=== PATIENT | female | born 1950 | race Caucasian/White ===

== ENCOUNTER 2017-08-31 16:08 | Observation (INO) | payer SELFPAY ==
--- NOTE | 2017-08-31 16:50 | ED PDOC ---
HPI: SOB/CHF/COPD Time Seen by Provider: 08/31/17 16:24 Chief Complaint (Nursing): Shortness Of Breath History Per: Patient Additional Complaint(s): Pt. states for the past 3-4 days she's had SOB. Reports that she does get SOB normally throughout the day which is relieved with her advair. States that SOB is worse when she is sleeping at night and when she goes up the stairs. Denies cough, hemoptysis, chest pain, palpitations, hx of DVT or PE, extremity swelling , fever. Of note, pt. was seen in [facility] earlier today and was told to come to ED for further evaluation. Past Medical History Reviewed: Historical Data, Nursing Documentation, Vital Signs Vital Signs: Last Vital Signs Temp 97.8 F 08/31/17 16:11 Pulse 51 L 08/31/17 16:11 Resp 16 08/31/17 16:11 BP 149/84 08/31/17 19:19 Pulse Ox 97 08/31/17 16:52 - Medical History PMH: Diabetes, HTN, Hypercholesterolemia - Surgical History Surgical History: No Surg Hx - Family History Family History: States: No Known Family Hx - Home Medications Home Medications: Ambulatory Orders Medication Instructions Recorded Aspirin [Aspirin] 325 mg PO DAILY 08/31/17 Glipizide [Glipizide Xl] 10 mg PO DIN 08/31/17 Insulin Glargine, Recombina 22 unit SC HS 08/31/17 [Lantus] Neomycin/Polymyxin/Dexamethaso 1 drop EACHEYE Q12 08/31/17 [Maxitrol Opht Susp] Omeprazole [Omeprazole] 20 mg PO DAILY 08/31/17 Rosuvastatin Calcium [Crestor] 10 mg PO HS 08/31/17 Salmeterol Xinafoate/Fluticaso 2 puff IH Q12 08/31/17 [Advair Hfa 230-21] Sitagliptin Phos/Metformin HCl 1 tab PO BID 08/31/17 [Janumet 50-500 mg Tablet] amLODIPine [Norvasc] 10 mg PO HS 08/31/17 - Allergies Allergies/Adverse Reactions: Allergies Allergy/AdvReac Type Severity Reaction Status Date / Time No Known Allergies Allergy Verified 08/31/17 16:11 Wells Criteria for PE - Wells Criteria for Pulmonary Embolism Clinical Signs and Symptoms of DVT: No P.E is #1 Diagnosis, or Equally Likely: No Heart Rate >100: No Immobilization at least 3 days;Surgery previous 4 weeks: No Previous, objectively diagnosed PE or DVT: No Hemoptysis: No Malignancy w/treatment within 6 months, or palliative: No Total Score: 0 Review of Systems ROS Statement: Except As Marked, All Systems Reviewed And Found Negative Cardiovascular: Positive for: Paroxysmal Noc. Dyspnea Respiratory: Positive for: Shortness of Breath Physical Exam - Reviewed Nursing Documentation Reviewed: Yes Vital Signs Reviewed: Yes - Physical Exam Appears: Positive for: Well, Non-toxic, No Acute Distress (speaking in full sentences) Head Exam: Positive for: ATRAUMATIC, NORMAL INSPECTION, NORMOCEPHALIC Skin: Positive for: Normal Color, Warm. Negative for: Rash Eye Exam: Positive for: EOMI, Normal appearance, PERRL ENT: Positive for: Normal ENT Inspection Neck: Positive for: Normal, Painless ROM Cardiovascular/Chest: Positive for: Regular Rate, Rhythm Respiratory: Positive for: CNT, Normal Breath Sounds Gastrointestinal/Abdominal: Positive for: Normal Exam, Soft. Negative for: Tenderness Back: Positive for: Normal Inspection Extremity: Positive for: Normal ROM. Negative for: Pedal Edema, Calf Tenderness (b/l), Swelling (b/l lower legs) Neurologic/Psych: Positive for: Alert, Oriented. Negative for: Aphasia, Facial Droop - Laboratory Results Result Diagrams: 08/31/17 17:38 08/31/17 17:38 - ECG ECG: Positive for: Interpreted By Me ECG Rhythm: Positive for: Sinus Rhythm. Negative for: ST/T Changes Rate: 61 O2 Sat by Pulse Oximetry: 97 - Radiology X-Ray: Interpreted by Me (CXR) X-Ray Interpretation: No Acute Disease - Progress ED Course And Treament: Labs ordered. Pt. placed on director of cardiac cath lab. compliance monitor: Sinus bradycardia at 52 bpm without ectopy Family and pt. informed of results. Reports that she still feels SOB. Due to pt. 's PMHx and age she will be placed under observation. Denies weakness, dizziness , lightheadedness. Case d/w Dr. Salazar who recommends 23 hr observation for symptomatic bradycardia. Case d/w Dr. Coronado and arrangements made for 23 hour observation. Disposition - Clinical Impression Clinical Impression: Symptomatic bradycardia - Patient ED Disposition Is Patient to be Admitted: No - Disposition Disposition Time: 19:22 Condition: STABLE
[2017-08-31 17:49] LABS: BASO # 0.1 K/uL (0.0-0.2); BASO % 0.6 % (0.0-2.0); EOS # 0.3 K/uL (0.0-0.7); EOS % 3.8 % (0.0-4.0); HEMOGLOBIN 13.9 g/dL (12.0-16.0); LYMPH # 3.3 K/uL (1.0-4.3); LYMPH % 36.9 % (20.0-40.0); MEAN CELL VOLUME 80.8 fl (81.0-99.0); MEAN CORPUSCULAR HEMOGLOBIN 27.4 pg (27.0-31.0); MEAN CORPUSCULAR HGB CONC 33.9 g/dL (33.0-37.0); MEAN PLATELET VOLUME 9.9 fl (7.2-11.7); MONO # 0.6 K/uL (0.0-0.8); MONO % 6.5 % (0.0-10.0); NEUT # 4.6 K/uL (1.8-7.0); NEUT % 52.2 % (50.0-75.0); NRBC % 0.1 % (0.0-0.0); RBC 5.07 Mil/uL (3.80-5.20); RED CELL DISTRIBUTION WIDTH 12.8 % (11.5-14.5); WHITE BLOOD COUNT 8.9 K/uL (4.8-10.8)
--- NOTE | 2017-08-31 17:55 | RAD ---
HISTORY: Shortness of breath COMPARISON: No prior. FINDINGS: LUNGS: The lungs are well inflated and clear. PLEURA: No significant pleural effusion identified, no pneumothorax apparent. CARDIOVASCULAR: The heart is normal in size. Atherosclerotic aortic arch calcifications are present. OSSEOUS STRUCTURES: No significant abnormalities. VISUALIZED UPPER ABDOMEN: Normal. OTHER FINDINGS: None. IMPRESSION: No active pulmonary disease.
[2017-08-31 18:08] LABS: ALB/GLOB RATIO 1.1 (1.0-2.1); ALBUMIN 4.4 g/dL (3.5-5.0); ALT/SGPT 45 U/L (9-52); AST/SGOT 34 U/L (14-36); BLOOD UREA NITROGEN 16 mg/dl (7-17); CALCIUM 9.9 mg/dL (8.4-10.2); GFR AFRICAN-AMERICAN > 60; GFR NON-AFRICAN AMERICAN > 60
[2017-08-31 18:23] LABS: B-TYPE NATRIURETIC PEPTIDE 218 pg/ml (0-900)
[2017-08-31] MEDS ORDERED: Albuterol 0.083% Inhal Sol (2.5 mg/3 mL) UD INH STA (19:22)
[2017-08-31] MEDS ORDERED: Albuterol 0.083% Inhal Sol (2.5 mg/3 mL) UD ONE (20:22)
[2017-08-31] MEDS ORDERED: Patient's Own Med (Sitagliptin Phos/Metformin Hcl [Janumet 50-500 Mg Tablet] 1 TAB) PO SCH (20:30)
[2017-08-31] MEDS ORDERED: Albuterol 0.083% Inhal Sol (2.5 mg/3 mL) UD INH PRN (20:38)
[2017-08-31] MEDS ORDERED: Glucagon Recombinant 1 mg Inj IM PRN (20:39)
[2017-08-31] MEDS ORDERED: Dextrose 50% SYRINGE Inj (50 ml) IV PRN (20:39)
--- NOTE | 2017-08-31 20:41 | CP.PCM.HP ---
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 Patient reports she has had short of breath for longtime, approximately 10 years, but started getting worse on December, after she had an episode of pneumonia. She feels that her SOB appears at not specific timing. But has noticed that her exertion tolerance has decreased since the beginning of this year, and she is able to walk just 1 block before getting SOB. Prior to the last year pneumonia episode she was able to walk long distances without getting SOB. Denies chest pain,chest tightness, N/V, abdominal pain, wheezing, fevers, chills, cough, sputum production. Denies paroxysmal nocturnal dyspnea. PMD: [facility] Full code PMHx: HTN, DM type 2 on insulin, HLD, Stroke ( two episodes 10 years ago), Asthma allergies:NKDA FHx: unknown Shx: Back surgery, Cholecystectomy, Hysterectomy Never had a colonoscopy. Socialhx: never smoker, denies etoh and illicit drugs meds: as per records ER course: alert and oriented x 3 VS:afebrile, bradycardic:51, normal oxygen sat in room air PE: CV : irregular bradycardia respiratory: diffuse and bilateral rales to auscultation, no wheezing or rhonchi ext: no edema in [place] labs:CBC unremarkable, CMP: normal lytes, troponin x I wnl, TSH wnl, Pro-BNP wnl CXR: reported as no evidence of active disease tx:albuterol inh once Present on Admission - Present on Admission Any Indicators Present on Admission: No History of DVT/PE: No History of Uncontrolled Diabetes: No Urinary Catheter: No Decubitus Ulcer Present: No Review of Systems - Review of Systems All systems: reviewed and no additional remarkable complaints except (as per HPI ) Past Patient History - CARDIAC Hx Hypercholesterolemia: Yes Hx Hypertension: Yes Meds Allergies/Adverse Reactions: Allergies Allergy/AdvReac Type Severity Reaction Status Date / Time No Known Allergies Allergy Verified 08/31/17 16:11 Physical Exam - Constitutional Appears: Non-toxic, No Acute Distress - ENT Exam ENT Exam: Mucous Membranes Moist - Respiratory Exam Respiratory Exam: Rales (diffuse rales bilateral), NORMAL BREATHING PATTERN. absent: Rhonchi, Wheezes, Respiratory Distress - Cardiovascular Exam Cardiovascular Exam: Bradycardia, Irregular Rhythm, +S1, +S2 - GI/Abdominal Exam GI & Abdominal Exam: Normal Bowel Sounds, Soft. absent: Distended, Guarding, Rebound, Rigid, Tenderness - Extremities Exam Extremities exam: Positive for: normal inspection. Negative for: calf tenderness, pedal edema - Back Exam Back exam: NORMAL INSPECTION. absent: CVA tenderness (L), CVA tenderness (R) - Neurological Exam Neurological exam: Alert, Oriented x3 - Psychiatric Exam Psychiatric exam: Normal Affect, Normal Mood - Skin Skin Exam: Dry, Intact, Normal Color Results - Vital Signs Recent Vital Signs: Last Vital Signs Temp 97.8 F 08/31/17 16:11 Pulse 51 L 08/31/17 16:11 Resp 16 08/31/17 16:11 BP 149/84 08/31/17 19:19 Pulse Ox 97 08/31/17 16:52 - Labs Result Diagrams: 08/31/17 17:38 08/31/17 17:38 Labs: Laboratory Results - last 24 hr 08/31/17 08/31/17 17:38 17:38 WBC 8.9 RBC 5.07 Hgb 13.9 Hct 41.0 MCV 80.8 L MCH 27.4 MCHC 33.9 RDW 12.8 Plt Count 255 MPV 9.9 Neut % (Auto) 52.2 Lymph % (Auto) 36.9 [place] % (Auto) 6.5 Eos % (Auto) 3.8 Baso % (Auto) 0.6 Neut # (Auto) 4.6 Lymph # (Auto) 3.3 [place] # (Auto) 0.6 Eos # (Auto) 0.3 Baso # (Auto) 0.1 Sodium 143 Potassium 4.5 Chloride 102 Carbon Dioxide 22 Anion Gap 24 H BUN 16 Creatinine 0.5 L Est GFR ( Amer) > 60 Est GFR (Non-Af Amer) > 60 Random Glucose 170 H Calcium 9.9 Phosphorus 5.2 H Magnesium 1.7 Total Bilirubin 0.5 AST 34 ALT 45 Alkaline Phosphatase 84 Troponin I < 0.0120 NT-Pro-B Natriuret Pep 218 Total Protein 8.4 H Albumin 4.4 Globulin 3.9 Albumin/Globulin Ratio 1.1 TSH 3rd Generation 3.08 Assessment & Plan - Assessment and Plan (Free Text) Assessment: 67 y/o female with PMHx HTN, DM type 2 on insulin, HLD, Stroke, Asthma admitted with dyspnea on exertion and irregular sinus bradycardia Plan: Dyspnea on exertion -Telemetry -respiratory etiology vs cardiac etiology -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 -oxygen supplementation via NC started at 2 LPM and titrate as needed to maintain oxygen sat >94 % -EKG in ER showed irregular sinus bradycardia with incomplete RBBB, and no specific T wave abnormality -repeat EKG -troponin x I wnl -check serial troponin x I x 2 -Echo in AM -PFTs to r/o obstructive vs restrictive lung disease -ABG in am -pro-BNP wnl -Consider cardiology consult if needed Hypertension -c/w home amlodipine -heart healthy diet Diabetes mellitus type 2 -accucheck -c/w home regimen -hypoglycemic protocol -check HgbA1C and lipid panel -diabetic diet H/O Asthma -does not seem to be in exacerbation -PFTs to r/o obstructive vs restrictive lung disease -c/w home steroid/long acting B2 adrenerg Hyperlipidemia -c/w home atorvastatin -check lipid panel DVT prophylaxis Lovenox SC - Date & Time Date: 08/31/17 Time: 20:50
[2017-08-31] MEDS ORDERED: Insulin Detemir 100 Units/ml Inj SC SCH (22:00)
[2017-09-01] MEDS: Fluticasone-Salmeterol 250-50mcg Diskus IH SCH ×2 (00:30→12:33)
[2017-09-01 05:56] LABS: HDL CHOLESTEROL 33 MG/DL (30-70)
[2017-09-01 06:07] LABS: LDL CHOLESTEROL 81 mg/dL (0-129)
[2017-09-01] MEDS ORDERED: Pneumococcal 23-Valent Vaccine IM ONE (06:30)
[2017-09-01] MEDS ORDERED: Sodium Chloride 0.9% 1,000 ML IV SCH (07:30)
[2017-09-01 09:00] LABS: SQUAMOUS EPITHIAL < 1 /hpf (0-5); URINE BILIRUBIN NEGATIVE (NEGATIVE); URINE BLOOD NEGATIVE (NEGATIVE); URINE CLARITY CLEAR (Clear); URINE COLOR YELLOW (YELLOW); URINE GLUCOSE (UA) NEG (Normal); URINE LEUKOCYTE ESTERASE NEG Leu/uL (Negative); URINE PROTEIN NEGATIVE (NEGATIVE); URINE UROBILINOGEN 0.2-1.0 mg/dL (0.2-1.0)
[2017-09-01] MEDS ORDERED: POLYETHYLENE GLYCOL 3350 17 GM/Dose PACKET PO SCH (09:00)
[2017-09-01] MEDS ORDERED: Enoxaparin 40 mg Syringe SC SCH (09:00)
[2017-09-01] MEDS ORDERED: Pantoprazole 40 mg EC Tab PO SCH (09:00)
--- NOTE | 2017-09-01 10:27 | CARD ---
APPROVED REPORT EXAM: Two-dimensional and M-mode echocardiogram with Doppler and color Doppler. Other Information Quality : GoodRhythm : Bradycardia INDICATION Abnormal EKG/Arrhythmia Dyspnea 2D DIMENSIONS IVSd1.22 (0.7-1.1cm)LVDd3.81 (3.9-5.9cm) LVOT Diameter1.75 (1.8-2.4cm)PWd0.96 (0.7-1.1cm) IVSs1.33 (0.8-1.2cm)LVDs2.39 (2.5-4.0cm) FS (%) 37.2 %PWs1.54 (0.8-1.2cm) M-Mode DIMENSIONS Left Atrium (MM)3.66 (2.5-4.0cm)IVSd0.98 (0.7-1.1cm) Aortic Root2.51 (2.2-3.7cm)LVDd4.47 (4.0-5.6cm) Aortic Cusp Exc.1.31 (1.5-2.0cm)PWd1.08 (0.7-1.1cm) IVSs1.91 cmFS (%) 58 % LVDs1.89 (2.0-3.8cm)PWs1.63 cm Mitral Valve MV E Ydnawmfm97.6cm/sMV DECEL [id number] A Mgchomjs58.6cm/s MV VFW81fxV/A ratio1.2MVA (PHT)3.70cm2 TDI Lateral E' Peak V7.66cm/sMedial E' Peak V9.13cm/sE/Lateral E'12.5 E/Medial E'10.5 Tricuspid Valve TR Peak Vlyvfmao550dr/sRAP [id number] Peak Gr.28mmHg VNUV06rhCi LEFT VENTRICLE The left ventricle is normal size. There is normal left ventricular wall thickness. Left ventricle systolic function is normal. The Ejection Fraction is 65-70%. There is normal LV segmental wall motion. Transmitral Doppler flow pattern is Grade I-abnormal relaxation pattern. RIGHT VENTRICLE The right ventricle is normal size. There is normal right ventricular wall thickness. The right ventricular systolic function is normal. ATRIA The left atrium size is normal. The right atrium size is normal. AORTIC VALVE The aortic valve is normal in structure. No aortic regurgitation is present. There is no aortic valvular stenosis. MITRAL VALVE The mitral valve is normal in structure. There is no evidence of mitral valve prolapse. There is no mitral valve stenosis. Mitral regurgitation is mild. TRICUSPID VALVE The tricuspid valve is normal in structure. There is mild tricuspid regurgitation. Right ventricular systolic pressure is estimated at 39 mmHg. There is mild pulmonary hypertension. PULMONIC VALVE The pulmonary valve is normal in structure. There is no pulmonic valvular regurgitation. GREAT VESSELS The aortic root is normal in size. The IVC is normal in size and collapses >50% with inspiration. PERICARDIAL EFFUSION The pericardium appears normal. <Conclusion> The left ventricle is normal size. There is normal left ventricular wall thickness. There is normal LV segmental wall motion. Left ventricle systolic function is normal. The Ejection Fraction is 65-70%. Transmitral Doppler flow pattern is Grade I-abnormal relaxation pattern. There is mild tricuspid regurgitation. There is mild pulmonary hypertension.
--- NOTE | 2017-09-01 10:40 | CARD ---
APPROVED REPORT EKG Measurement Heart [id number] <Conclusion> Sinus rhythm with premature atrial complexes in a pattern of bigeminy Incomplete right bundle branch block Nonspecific T wave abnormality Abnormal ECG
--- NOTE | 2017-09-01 10:57 | CP.PCM.PN ---
Subjective - Date & Time of Evaluation Date of Evaluation: 09/01/17 Time of Evaluation: 09:15 - Subjective Subjective: Pt seen and examined at bedside. hospital plan administrator for english: #[id number]. Pt was seated eating breakfast. Denies significant overnight events. Denies CP/SOB/N/ V. Reports weakness since stroke 10 years ago and from chronic bilateral knee pain. Objective - Vital Signs/Intake and Output Vital Signs (last 24 hours): Temp Pulse Resp BP Pulse Ox 98.2 F 50 L 20 129/75 92 L 09/01/17 07:53 09/01/17 07:53 09/01/17 07:53 09/01/17 07:53 09/01/17 07:53 - Medications Medications: Current Medications Albuterol Sulfate (Albuterol 0.083% Inhal Irais (2.5 Mg/3 Ml) Ud) 2.5 mg INH RQ6 PRN PRN Reason: Shortness of Breath Amlodipine Besylate (Norvasc) 10 mg PO HS [facility] Last Admin: 08/31/17 22:38 Dose: 10 mg Aspirin (Aspirin Chewable) 81 mg PO DAILY [facility] Last Admin: 09/01/17 10:04 Dose: 81 mg Atorvastatin Calcium (Lipitor) 20 mg PO HS [facility] Last Admin: 08/31/17 22:39 Dose: 20 mg Dextrose (Dextrose 50% Inj) 0 ml IV STAT PRN; Protocol PRN Reason: Hypoglycemia Protocol Dextrose (Glutose 15) 0 gm PO ONCE PRN; Protocol PRN Reason: Hypoglycemia Protocol Enoxaparin Sodium (Lovenox) 40 mg SC DAILY [facility] PRN Reason: Protocol Last Admin: 09/01/17 10:05 Dose: 40 mg Glipizide (Glucotrol Xl) 10 mg PO DIN [facility] Glucagon (Glucagen Diagnostic Kit) 0 mg IM STAT PRN; Protocol PRN Reason: Hypoglycemia Protocol Sodium Chloride (Sodium Chloride 0.9%) 1,000 mls @ 100 mls/hr IV .Q10H [facility] Stop: 09/01/17 17:29 Last Admin: 09/01/17 10:06 Dose: 100 mls/hr Insulin Detemir (Levemir) 22 units SC HS [facility] Last Admin: 08/31/17 22:39 Dose: 22 units Metformin HCl (Glucophage) 500 mg PO BID [facility] Last Admin: 04/12/18 10:04 Dose: 500 mg Pantoprazole Sodium (Protonix Ec Tab) 40 mg PO DAILY [facility] Last Admin: 09/01/17 10:05 Dose: 40 mg Polyethylene Glycol (Miralax) 17 gm PO DAILY [facility] Fluticasone/Salmeterol (Advair Diskus 250/50) 1 puff IH Q12 [facility] Last Admin: 09/01/17 00:30 Dose: Not Given Sitagliptin Phosphate (Januvia) 50 mg PO BID [facility] Last Admin: 09/01/17 10:05 Dose: 50 mg - Labs Labs: 08/31/17 17:38 08/31/17 17:38 - Constitutional Appears: Well, No Acute Distress - Eye Exam Eye Exam: EOMI - Respiratory Exam Respiratory Exam: Clear to Ausculation Bilateral, NORMAL BREATHING PATTERN. absent: Wheezes - Cardiovascular Exam Cardiovascular Exam: +S1, +S2 - GI/Abdominal Exam GI & Abdominal Exam: Soft, Normal Bowel Sounds. 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 Goyal; recommendations appreciated. Hypertension -c/w home amlodipine -heart healthy diet Diabetes mellitus type 2 -accucheck -c/w home regimen -hypoglycemic protocol with low SS -check HgbA1C and lipid panel -diabetic diet H/O Asthma -does not seem to be in exacerbation -PFTs to r/o obstructive vs restrictive lung disease: pending -c/w home steroid/long acting B2 adrenerg Hyperlipidemia -c/w home atorvastatin -check lipid panel DVT prophylaxis Lovenox SC
--- NOTE | 2017-09-01 11:24 | CP.PCM.CON ---
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 Patient reports she has had short of breath for longtime, approximately 10 years , but started getting worse on December, after she had an episode of pneumonia. Denies chest pain,chest tightness, N/V, abdominal pain, wheezing, fevers, chills, cough, sputum production. Denies paroxysmal nocturnal dyspnea. Pt and family c/o sob when she walks assoc with wheezing alleviated by using an inhaler PMD: [facility] Full code PMHx: HTN, DM type 2 on insulin, HLD, Stroke ( two episodes 10 years ago), Asthma allergies:NKDA FHx: unknown Shx: Back surgery, Cholecystectomy, Hysterectomy EKG: NSR Echo: normal EF: 65-70% Troponin: neg BNP: normal Telemetry show sinus stefany that responds to movement Past Patient History - Past Medical History & Family History Past Medical History?: Yes - Past Social History Smoking Status: Never Smoked - CARDIAC Hx Hypercholesterolemia: Yes Hx Hypertension: Yes - ENDOCRINE/METABOLIC Hx Diabetes Mellitus Type 2: Yes - MUSCULOSKELETAL/RHEUMATOLOGICAL Hx Falls: No - PSYCHIATRIC Hx Substance Use: No - ANESTHESIA Hx Anesthesia: No Hx Anesthesia Reactions: No Hx Malignant Hyperthermia: No Has any member of the family had a problem w/ anesthesia?: No Meds Allergies/Adverse Reactions: Allergies Allergy/AdvReac Type Severity Reaction Status Date / Time No Known Allergies Allergy Verified 08/31/17 16:11 - Medications Medications: Current Medications Albuterol Sulfate (Albuterol 0.083% Inhal Irais (2.5 Mg/3 Ml) Ud) 2.5 mg INH RQ6 PRN PRN Reason: Shortness of Breath Amlodipine Besylate (Norvasc) 10 mg PO HS [facility] Last Admin: 08/31/17 22:38 Dose: 10 mg Aspirin (Aspirin Chewable) 81 mg PO DAILY [facility] Last Admin: 09/01/17 10:04 Dose: 81 mg Atorvastatin Calcium (Lipitor) 20 mg PO HS [facility] Last Admin: 08/31/17 22:39 Dose: 20 mg Dextrose (Dextrose 50% Inj) 0 ml IV STAT PRN; Protocol PRN Reason: Hypoglycemia Protocol Dextrose (Glutose 15) 0 gm PO ONCE PRN; Protocol PRN Reason: Hypoglycemia Protocol Enoxaparin Sodium (Lovenox) 40 mg SC DAILY [facility] PRN Reason: Protocol Last Admin: 09/01/17 10:05 Dose: 40 mg Glipizide (Glucotrol Xl) 10 mg PO DIN [facility] Glucagon (Glucagen Diagnostic Kit) 0 mg IM STAT PRN; Protocol PRN Reason: Hypoglycemia Protocol Sodium Chloride (Sodium Chloride 0.9%) 1,000 mls @ 100 mls/hr IV .Q10H [facility] Stop: 09/01/17 17:29 Last Admin: 09/01/17 10:06 Dose: 100 mls/hr Insulin Detemir (Levemir) 22 units SC HS [facility] Last Admin: 08/31/17 22:39 Dose: 22 units Metformin HCl (Glucophage) 500 mg PO BID [facility] Last Admin: 09/01/17 10:04 Dose: 500 mg Pantoprazole Sodium (Protonix Ec Tab) 40 mg PO DAILY [facility] Last Admin: 09/01/17 10:05 Dose: 40 mg Polyethylene Glycol (Miralax) 17 gm PO DAILY [facility] Fluticasone/Salmeterol (Advair Diskus 250/50) 1 puff IH Q12 [facility] Last Admin: 09/01/17 00:30 Dose: Not Given Sitagliptin Phosphate (Januvia) 50 mg PO BID [facility] Last Admin: 09/01/17 10:05 Dose: 50 mg Results - Vital Signs Recent Vital Signs: Last Vital Signs Temp 98.2 F 09/01/17 07:53 Pulse 50 L 09/01/17 07:53 Resp 20 09/01/17 07:53 BP 129/75 09/01/17 07:53 Pulse Ox 92 L 09/01/17 07:53 - Labs Result Diagrams: 08/31/17 17:38 08/31/17 17:38 Labs: Laboratory Results - last 24 hr 08/31/17 08/31/17 08/31/17 17:38 17:38 21:10 WBC 8.9 RBC 5.07 Hgb 13.9 Hct 41.0 MCV 80.8 L MCH 27.4 MCHC 33.9 RDW 12.8 Plt Count 255 MPV 9.9 Neut % (Auto) 52.2 Lymph % (Auto) 36.9 [place] % (Auto) 6.5 Eos % (Auto) 3.8 Baso % (Auto) 0.6 Neut # (Auto) 4.6 Lymph # (Auto) 3.3 [place] # (Auto) 0.6 Eos # (Auto) 0.3 Baso # (Auto) 0.1 Sodium 143 Potassium 4.5 Chloride 102 Carbon Dioxide 22 Anion Gap 24 H BUN 16 Creatinine 0.5 L Est GFR ( Amer) > 60 Est GFR (Non-Af Amer) > 60 POC Glucose (mg/dL) 103 Random Glucose 170 H Calcium 9.9 Phosphorus 5.2 H Magnesium 1.7 Total Bilirubin 0.5 AST 34 ALT 45 Alkaline Phosphatase 84 Troponin I < 0.0120 NT-Pro-B Natriuret Pep 218 Total Protein 8.4 H Albumin 4.4 Globulin 3.9 Albumin/Globulin Ratio 1.1 Triglycerides Cholesterol LDL Cholesterol Direct HDL Cholesterol TSH 3rd Generation 3.08 Urine Color Urine Clarity Urine pH Ur Specific [place] Urine Protein Urine Glucose (UA) Urine Ketones Urine Blood Urine Nitrate Urine Bilirubin Urine Urobilinogen Ur Leukocyte Esterase Urine RBC (Auto) Urine Microscopic WBC Ur Squamous Epith Cells 09/01/17 09/01/17 09/01/17 00:57 05:00 05:30 WBC RBC Hgb Hct MCV MCH MCHC RDW Plt Count MPV Neut % (Auto) Lymph % (Auto) [place] % (Auto) Eos % (Auto) Baso % (Auto) Neut # (Auto) Lymph # (Auto) Jones # (Auto) Eos # (Auto) Baso # (Auto) Sodium Potassium Chloride Carbon Dioxide Anion Gap BUN Creatinine Est GFR ( Amer) Est GFR (Non-Af Amer) POC Glucose (mg/dL) 143 H Random Glucose Calcium Phosphorus Magnesium Total Bilirubin AST ALT Alkaline Phosphatase Troponin I < 0.0120 NT-Pro-B Natriuret Pep Total Protein Albumin Globulin Albumin/Globulin Ratio Triglycerides 474 H Cholesterol 181 LDL Cholesterol Direct 81 HDL Cholesterol 33 TSH 3rd Generation Urine Color Urine Clarity Urine pH Ur Specific [place] Urine Protein Urine Glucose (UA) Urine Ketones Urine Blood Urine Nitrate Urine Bilirubin Urine Urobilinogen Ur Leukocyte Esterase Urine RBC (Auto) Urine Microscopic WBC Ur Squamous Epith Cells 09/01/17 09/01/17 09/01/17 07:48 08:15 11:11 WBC RBC Hgb Hct MCV MCH MCHC RDW Plt Count MPV Neut % (Auto) Lymph % (Auto) Jones % (Auto) Eos % (Auto) Baso % (Auto) Neut # (Auto) Lymph # (Auto) Jones # (Auto) Eos # (Auto) Baso # (Auto) Sodium Potassium Chloride Carbon Dioxide Anion Gap BUN Creatinine Est GFR ( Amer) Est GFR (Non-Af Amer) POC Glucose (mg/dL) 286 H Random Glucose Calcium Phosphorus 5.5 H Magnesium 1.7 Total Bilirubin AST ALT Alkaline Phosphatase Troponin I NT-Pro-B Natriuret Pep Total Protein Albumin Globulin Albumin/Globulin Ratio Triglycerides Cholesterol LDL Cholesterol Direct HDL Cholesterol TSH 3rd Generation Urine Color Yellow Urine Clarity Clear Urine pH 7.0 Ur Specific [place] 1.013 Urine Protein Negative Urine Glucose (UA) Neg Urine Ketones Negative Urine Blood Negative Urine Nitrate Negative Urine Bilirubin Negative Urine Urobilinogen 0.2-1.0 Ur Leukocyte Esterase Neg Urine RBC (Auto) < 1 Urine Microscopic WBC 2 Ur Squamous Epith Cells < 1 Assessment & Plan (1) Asthma Status: Acute (2) Sinus bradycardia Assessment and Plan: Pt's HR responds with movement No Tx needed Pt may be discharged Status: Acute
--- NOTE | 2017-09-01 11:56 | CP.PCM.DIS ---
Provider - Provider Date of Admission: 08/31/17 20:07 Attending physician: Gabrielle Kong MD Time Spent in preparation of Discharge (in minutes): 20 Diagnosis - Discharge Diagnosis (1) Asthma Status: Acute (2) Sinus bradycardia Status: Acute Hospital Course - Lab Results Lab Results: Most Recent Lab Values WBC 8.9 K/uL (4.8-10.8) 08/31/17 17:38 RBC 5.07 Mil/uL (3.80-5.20) 08/31/17 17:38 Hgb 13.9 g/dL (12.0-16.0) 08/31/17 17:38 Hct 41.0 % (34.0-47.0) 08/31/17 17:38 MCV 80.8 fl (81.0-99.0) L 08/31/17 17:38 MCH 27.4 pg (27.0-31.0) 08/31/17 17:38 MCHC 33.9 g/dL (33.0-37.0) 08/31/17 17:38 RDW 12.8 % (11.5-14.5) 08/31/17 17:38 Plt Count 255 K/uL (130-400) 08/31/17 17:38 MPV 9.9 fl (7.2-11.7) 08/31/17 17:38 Neut % (Auto) 52.2 % (50.0-75.0) 08/31/17 17:38 Lymph % (Auto) 36.9 % (20.0-40.0) 08/31/17 17:38 [place] % (Auto) 6.5 % (0.0-10.0) 08/31/17 17:38 Eos % (Auto) 3.8 % (0.0-4.0) 08/31/17 17:38 Baso % (Auto) 0.6 % (0.0-2.0) 08/31/17 17:38 Neut # (Auto) 4.6 K/uL (1.8-7.0) 08/31/17 17:38 Lymph # (Auto) 3.3 K/uL (1.0-4.3) 08/31/17 17:38 [place] # (Auto) 0.6 K/uL (0.0-0.8) 08/31/17 17:38 Eos # (Auto) 0.3 K/uL (0.0-0.7) 08/31/17 17:38 Baso # (Auto) 0.1 K/uL (0.0-0.2) 08/31/17 17:38 Sodium 143 mmol/l (132-148) 08/31/17 17:38 Potassium 4.5 MMOL/L (3.6-5.0) 08/31/17 17:38 Chloride 102 mmol/L (98-107) 08/31/17 17:38 Carbon Dioxide 22 mmol/L (22-30) 08/31/17 17:38 Anion Gap 24 (10-20) H 08/31/17 17:38 BUN 16 mg/dl (7-17) 08/31/17 17:38 Creatinine 0.5 mg/dl (0.7-1.2) L 08/31/17 17:38 Est GFR ( Amer) > 60 08/31/17 17:38 Est GFR (Non-Af Amer) > 60 08/31/17 17:38 POC Glucose (mg/dL) 286 mg/dL (65-110) H 09/01/17 11:11 Random Glucose 170 mg/dL (65-105) H 08/31/17 17:38 Calcium 9.9 mg/dL (8.4-10.2) 08/31/17 17:38 Phosphorus 5.5 mg/dl (2.5-4.5) H 09/01/17 07:48 Magnesium 1.7 MG/DL (1.6-2.3) 09/01/17 07:48 Total Bilirubin 0.5 mg/dl (0.2-1.3) 08/31/17 17:38 AST 34 U/L (14-36) 08/31/17 17:38 ALT 45 U/L (9-52) 08/31/17 17:38 Alkaline Phosphatase 84 U/L (38-126) 08/31/17 17:38 Troponin I < 0.0120 ng/mL (0.00-0.120) 09/01/17 00:57 NT-Pro-B Natriuret Pep 218 pg/ml (0-900) 08/31/17 17:38 Total Protein 8.4 G/DL (6.3-8.2) H 08/31/17 17:38 Albumin 4.4 g/dL (3.5-5.0) 08/31/17 17:38 Globulin 3.9 gm/dL (2.2-3.9) 08/31/17 17:38 Albumin/Globulin Ratio 1.1 (1.0-2.1) 08/31/17 17:38 Triglycerides 474 mg/DL (0-149) H 09/01/17 05:00 Cholesterol 181 mg/dL (0-199) 09/01/17 05:00 LDL Cholesterol Direct 81 mg/dL (0-129) 09/01/17 05:00 HDL Cholesterol 33 MG/DL (30-70) 09/01/17 05:00 TSH 3rd Generation 3.08 mIU/ML (0.46-4.68) 08/31/17 17:38 Urine Color Yellow (YELLOW) 09/01/17 08:15 Urine Clarity Clear (Clear) 09/01/17 08:15 Urine pH 7.0 (5.0-8.0) 09/01/17 08:15 Ur Specific [place] 1.013 (1.003-1.030) 09/01/17 08:15 Urine Protein Negative mg/dL (NEGATIVE) 09/01/17 08:15 Urine Glucose (UA) Neg mg/dL (Normal) 09/01/17 08:15 Urine Ketones Negative mg/dL (NEGATIVE) 09/01/17 08:15 Urine Blood Negative (NEGATIVE) 09/01/17 08:15 Urine Nitrate Negative (NEGATIVE) 09/01/17 08:15 Urine Bilirubin Negative (NEGATIVE) 09/01/17 08:15 Urine Urobilinogen 0.2-1.0 mg/dL (0.2-1.0) 09/01/17 08:15 Ur Leukocyte Esterase Neg [place]/uL (Negative) 09/01/17 08:15 Urine RBC (Auto) < 1 /hpf (0-3) 09/01/17 08:15 Urine Microscopic WBC 2 /hpf (0-5) 09/01/17 08:15 Ur Squamous Epith Cells < 1 /hpf (0-5) 09/01/17 08:15 - Hospital Course Hospital Course: 67 y/o female with PMHx HTN, DM type 2 on insulin, HLD, Stroke, Asthma admitted with dyspnea on exertion and sinus bradycardia. Pt stable. Troponin neg. Echo was performed EF: 65-70% Cardiology Dr. Mittal HR responds with movement, recommended d/c home. PT recommends home w/ services. Pt to f/u with PCP at [facility]. Discharge Exam - Head Exam Head Exam: ATRAUMATIC, NORMAL INSPECTION, NORMOCEPHALIC - Eye Exam Eye Exam: EOMI - Respiratory Exam Respiratory Exam: Clear to PA & Lateral, NORMAL BREATHING PATTERN. absent: Wheezes - Cardiovascular Exam Cardiovascular Exam: Bradycardia, +S1, +S2 - Neurological Exam Neurological exam: Alert, CN II-XII Intact, Oriented x3 - Psychiatric Exam Psychiatric exam: Normal Affect, Normal Mood Discharge Plan - Discharge Medications Prescriptions: amLODIPine [Norvasc] 10 mg PO HS #30 tab Aspirin 325 mg PO DAILY #30 tab Glipizide [Glipizide Xl] 10 mg PO DIN #30 tab.er.24 Insulin Glargine, Recombina [Lantus] 22 unit SC HS 30 Days #6 unit Neomycin/Polymyxin/Dexamethaso [Maxitrol Opht Susp] 1 drop EACHEYE Q12 #1 bottle Omeprazole 20 mg PO DAILY #30 capsule. Rosuvastatin Calcium [Crestor] 10 mg PO HS #30 tab Salmeterol Xinafoate/Fluticaso [Advair Hfa 230-21] 2 puff IH Q12 #1 inhaler Sitagliptin Phos/Metformin HCl [Janumet 50-500 mg Tablet] 1 tab PO BID #60 tablet - Follow Up Plan Condition: STABLE Disposition: HOME/ ROUTINE Instructions: Asthma (DC) Additional Instructions: Please follow up in clinic at [address] [place] [address] in 2-3 days.
[2017-09-01 12:13] VITALS: RESP 18
[2017-09-01 16:31] VITALS: BP 132/55; PULSE 87; TEMP 98; O2SAT 95
[2017-09-01] MEDS ORDERED: GlipiZIDE 10 mg SR Tab PO SCH (17:00)
== END 2017-09-01 18:30 | disposition home or self-care (01) ==
LOC: H.ER 16:08 → H.ERHOLD 20:07 → H.TEL 22:58
PROVIDERS: ADMIT Family Medicine Geriatric Medicine; ATTEND Family Medicine Geriatric Medicine
DX: R00.1 Bradycardia, unspecified (principal); I45.19 Other right bundle-branch block; J45.909 Unspecified asthma, uncomplicated; E11.9 Type 2 diabetes mellitus without complications; I10 Essential (primary) hypertension; E78.5 Hyperlipidemia, unspecified; G89.29 Other chronic pain; E78.00 Pure hypercholesterolemia, unspecified; Z23 Encounter for immunization; Z86.73 Personal history of transient ischemic attack (TIA), and cerebral infarction without residual deficits; Z87.01 Personal history of pneumonia (recurrent); Z79.4 Long term (current) use of insulin; Z79.84 Long term (current) use of oral hypoglycemic drugs; Z79.82 Long term (current) use of aspirin
CPT/HCPCS: 36415; 71045; 80053; 80061; 81003; 82550; 82948; 83036; 83735; 83880; 84100; 84443; 84484; 85025; 85651; 87040; 87804; 90471; 90732; 93005; 93306; 96372; 97162; 99284; G0378; G8978; G8979; J1650; J7040